=== PATIENT | female | born 1940 | race Caucasian/White ===

== ENCOUNTER 2016-08-16 08:35 | Outpatient (CLI) | payer OTHER ==
--- NOTE | 2016-08-16 10:06 | DIAGNOSTIC IMAGING REPORT ---
PROCEDURE: US ABDOMEN ULTRASOUND-COMPLETE INDICATION: WEIGHT LOSS,ABD PAIN, initial encounter TECHNIQUE: Diego scale and color Doppler sonographic images of the abdomen were obtained. COMPARISON: CT abdomen/pelvis 08/18/2015 FINDINGS: Enlarged liver (21.6 cm) with increased echogenicity. Normal spleen and pancreas. 4 mm non mobile gallbladder mural nodule posteriorly consistent with a polyp. Normal CBD measures 3.1 mm. Negative Saldana's sign. Atherosclerosis but no aortic aneurysm. IVC is patent. Normal hepatopetal flow in the portal vein. Right kidney measures 12.2 cm with a 2.3 cm upper pole cyst. Left kidney measures 12.2 cm with multiple cysts, largest inferiorly measuring 3.6 cm. IMPRESSION: 1. Hepatomegaly with steatosis 2. Bilateral renal cysts 3. Gallbladder polyp
== END 2016-08-16 23:00 ==
LOC: US SRH 08:35
DX: R63.4 Abnormal weight loss (principal); R10.9 Unspecified abdominal pain; R16.0 Hepatomegaly, not elsewhere classified; E88.89 Other specified metabolic disorders; N28.1 Cyst of kidney, acquired; K82.4 Cholesterolosis of gallbladder

== ENCOUNTER 2016-08-17 13:10 | Outpatient (CLI) | payer OTHER ==
--- NOTE | 2016-08-17 14:50 | DIAGNOSTIC IMAGING REPORT ---
PROCEDURE: CT ABD/PELVIS WITH CONTRAST CLINICAL INDICATION: ABD PAIN;NAUSEA;WT LOSS TECHNIQUE: 125 ml of Isovue 300 were injected intravenously and axial images were obtained of the entire abdomen and pelvis with sagittal and coronal reformations. COMPARISON: Abdominal ultrasound 08/16/2016, chest CT 05/10/[address] abdomen/pelvis 08/18/2015. FINDINGS: ABDOMEN: Status post right lower lobectomy with stable right infrahilar mass/adenopathy, right hemithorax volume loss and improved small right pleural effusion. Normal heart size. Enlarged liver (22 cm) with steatosis. Stable 4 mm hypoenhancing left hepatic lobe lesion, likely benign. The gallbladder, pancreas, spleen and adrenal glands are normal. Stable bilateral renal cysts. Severe atherosclerosis of the aorta. Moderate hiatal hernia. PELVIS: Appendix not visualized. Mild proximal sigmoid diverticulosis. Hysterectomy. Normal bladder. No inflammatory changes or free fluid. 1 cm fat-containing umbilical hernia. Moderate dextroconvex thoracolumbar spine and levoconvex lumbar spine scoliosis with severe degenerative changes.. IMPRESSION: 1. Status post right lower lobectomy with stable postoperative changes and improved small right pleural effusion 2. Hepatomegaly with steatosis 3. Bilateral renal cysts 4. Proximal sigmoid diverticulosis 5. Hysterectomy All CT scans at this facility use dose modulation, iterative reconstruction, and/or weight-based dosing when appropriate to reduce radiation dose to as low as reasonably achievable.
== END 2016-08-17 23:00 ==
LOC: CT SRH 13:10
DX: R10.84 Generalized abdominal pain (principal); R63.4 Abnormal weight loss; R16.0 Hepatomegaly, not elsewhere classified; E88.89 Other specified metabolic disorders; N28.1 Cyst of kidney, acquired; J90 Pleural effusion, not elsewhere classified; K57.30 Diverticulosis of large intestine without perforation or abscess without bleeding; Z90.710 Acquired absence of both cervix and uterus; Z85.118 Personal history of other malignant neoplasm of bronchus and lung

== ENCOUNTER 2016-09-28 01:48 | Emergency (ER) | payer OTHER ==
--- NOTE | 2016-09-28 02:23 | ED ORDER SUMMARY ---
..... Patient: PHONG CARTY OrderSheet [facility] VisitID: [id number] [address] [place] [address] 76y, F Registration Date/Time: 09/28/2016 ORDER SHEET Weight: 76.6 kg (stated) Allergies: Adhesive Tape GENERAL ORDERS: UA-Culture if indicated Urgent (02:01 09/28/2016 Patricia SAUCEDO) (Ack 2:05 Kayli) MEDICATION ORDERS: IV FLUIDS: ORDER SHEET NOTES: [Electronically signed by Marquita Montero R.N. (02:31 09/28/2016)] [Electronically signed by Andres Cross MD (02:34 09/28/2016)] [Electronically locked/signed by Marquita Montero R.N. (02:09/28/2016)]
--- NOTE | 2016-09-28 02:23 | ED CLINICAL REPORT ---
Clinical Report - Physicians/Mid Levels [facility] [address] [place] [address] 09/28/2016 1:52 Patient: PHONG CARTY Time Seen: 01:54. Arrived- By private vehicle. Historian- patient. HISTORY OF PRESENT ILLNESS Chief Complaint: DYSURIA. BLOOD IN URINE. This started last night and still present. It was abrupt in onset and has been constant. The symptoms are described as moderate. The patient has had moderate burning pain with urination. It is described as "painful" and has occurred during urination. The patient has had urinary frequency and hematuria. She has had urgency of urination. Similar symptoms previously: (many years ago). REVIEW OF SYSTEMS No chills, fever, sweats, calf pain or chest pain. No cough, difficulty breathing, pedal edema, palpitations or abdominal pain. No black stools, bloody stools, constipation, diarrhea or nausea. No vomiting or urinary problems. All systems otherwise negative, except as recorded above. PAST HISTORY Problems: Hypercholesterolemia. Diabetes Mellitus. Atrial Fibrillation. Cancer. Immunizations. Additional Surgeries: Appendectomy. Hysterectomy. Knee Surgery. Lung Surgery. Medications: Melatonin Oral. Vitamin B-12 Oral. Vitamin D3 Oral. Calcium 600 Oral. Mature vit. [place] 3 Oral. Glipizide Oral 5 mg, 2x a day. MetFORMIN HCl Oral (Tablet 500 mg) 1 tablet, 2x a day. Coumadin Oral 6.5mg, daily. Digoxin Oral 0.25 mg, daily. Lovastatin Oral 40, at bedtime. Potassium Chloride Oral 20 meq, at bedtime. Allergies: Adhesive Tape. Definite Mild (redness). SOCIAL HISTORY Occasional alcohol use. No drug use. FAMILY HISTORY Denies family medical history. ADDITIONAL NOTES The nursing notes have been reviewed. PHYSICAL EXAM Vital Signs: 09/28/2016 01:55 BP: 191/85. HR: 89. RR: 17. O2 saturation: 95%. Temp: 98 F. Bojorquez-Rasmussen pain scale: 4/10. Have been reviewed. Appearance: Alert. ENT: Pharynx normal. Neck: Neck supple. CVS: Heart sounds normal. Respiratory: No respiratory distress. Breath sounds normal. Abdomen: Soft. Mild tenderness in the suprapubic area. Bowel sounds normal. No organomegaly. No mass. Back: Normal external inspection. No CVA tenderness. Skin: Skin warm and dry. Normal skin color. No rash. Normal skin turgor. Extremities: No calf tenderness. No lower extremity edema. LABS, X-RAYS, AND EKG Laboratory Tests: UA-Culture if indicated: (PEDRO LUIS: 09/28/2016 02:00) ( MsgRcvd 09/28/2016 02:16) Final results Test Result Flag Units (Reference) URINE COLOR RED URINE APPEARANCE CLOUDY URINE GLUCOSE NEGATIVE (NEGATIVE) URINE BILIRUBIN 2+ (NEGATIVE) URINE BILIRUBIN ICTOTEST NEGATIVE (NEGATIVE) URINE KETONE TRACE (NEGATIVE) ACETEST NEGATIVE This is a corrected result 09/28/16 0216:URINE KETONE previously reported as: TRACE URINE SPECIFIC GRAVITY 1.020 (1.010-1.030) URINE PH 6.5 (5.0-8.0) URINE PROTEIN 3+ (NEGATIVE) URINE UROBILINOGEN 1.0 EU/dL (0.2-1.0) URINE NITRITE POSITIVE (NEGATIVE) URINE BLOOD 3+ (NEGATIVE) URINE LEUK ESTERASE POSITIVE (NEGATIVE) URINE RBC >100 rbc/hpf (0-1) URINE WBC 50-75 wbc/hpf (0-1) URINE EPITHELIAL CELLS 0-1 EPI/hpf (0-5) URINE BACTERIA MODERATE (2+ TO 3+) (NONE SEEN) URINE COMMENT CULTURE INDICATED URINE CULTURES ARE SET-UP BASED ON THE FOLLOWING CRITERIA:POSITIVE NITRITEPOSITIVE LEUKOCYTE ESTERASEGREATER THAN 10 WHITE BLOOD CELLSMODERATE (2+) OR GREATER BACTERIA . CLINICAL IMPRESSION Acute urinary tract infection with cystitis. INSTRUCTIONS Drink plenty of fluids. Warnings: Further evaluation is necessary. GENERAL WARNINGS: Return or contact your physician immediately if your condition worsens or changes unexpectedly, if not improving as expected, or if other problems arise. Your Current Medications: CONTINUE TAKING THE FOLLOWING MEDICATIONS: Calcium 600 Oral. Coumadin Oral : 6.5mg daily. Digoxin Oral : 0.25 mg daily. Glipizide Oral : 5 mg 2x a day. Lovastatin Oral : 40 at bedtime. Mature vit*. Melatonin Oral. MetFORMIN HCl Oral : Tablet 500 mg, 1 tablet 2x a day. [place] 3 Oral. Vitamin B-12 Oral. Vitamin D3 Oral. Prescription Medications: Pyridium 200 mg: take 1 orally every 8 hours as needed for urinary problems. Dispense six (6). No refills. Substitution is permissible. Macrobid 100 mg: Take 1 capsule orally every 12 hours for 7 days. No refills. Substitution is permissible. Understanding of the discharge instructions verbalized by patient. Follow-up with: Destiney Tavera PA-C, [facility], , [facility], [address] [place] [address] Follow up in five days. Call for an appointment. (Electronically signed by Andres Cross MD 09/28/2016 2:34)
--- NOTE | 2016-09-28 02:23 | ED NURSING NOTES ---
Clinical Report - Nurses [facility] [address] [place] [address] 09/28/2016 1:52 Patient: PHONG CARTY TRIAGE Triage time 01:55. Acuity: LEVEL 4. Chief Complaint: PAINFUL URINATION, URGENCY and FREQUENCY and BLOOD IN URINE. Alert. No acute distress. --01:59 Marquita Montero R.N. 01:55 09/28/16. BP: 191/85. HR: 89. RR: 17. O2 saturation: 95% on room air. Temp: 98 F (oral). Bojorquez-Rasmussen pain scale: 4/10. --01:59 Marquita Montero R.N. Weight: 76.6 kg stated. Height/Length: 64 inches Per Patient. BMI: 29. --01:59 Marquita Montero R.N. Medications Digoxin Oral 0.25 mg, daily. Lovastatin Oral 40, at bedtime. Potassium Chloride Oral 20 meq, at bedtime. --02:01 Marquita Montero R.N. Coumadin Oral 6.5mg, daily. --02:01 Marquita Montero R.N. MetFORMIN HCl Oral (Tablet 500 mg) 1 tablet, 2x a day. --02:02 Marquita Montero R.N. Glipizide Oral 5 mg, 2x a day. --02:02 Marquita Montero R.N. [place] 3 Oral. --02:02 Marquita Montero R.N. Mature vit. --02:02 Marquita Montero R.N. Calcium 600 Oral. --02:03 Marquita Montero R.N. Vitamin D3 Oral. --02:03 Marquita Montero R.N. Vitamin B-12 Oral. --02:03 Marquita Montero R.N. Melatonin Oral. --02:03 Marquita Montero R.N. Allergies Adhesive Tape. Definite Mild (redness) --01:58 Marquita Montero R.N. History Arrived by private vehicle. Primary physician (Alex). This started last night. Onset. (at about 1900). Treatment SHOE LINING FITTER: None. PAST MEDICAL HX: Immunizations: up-to-date. SOCIAL HX: Smoker- current status unknown. Occasional alcohol use. No drug use. NUTRITIONAL RISK ASSESSMENT: The nutritional risk assessment revealed no deficiencies. FUNCTIONAL ASSESSMENT: Functional assessment: no impairments noted. --:59 Marquita Montero R.N. PROBLEMS: Cancer. --:58 Marquita Montero R.N. Hypercholesterolemia. Diabetes Mellitus. Atrial Fibrillation. --02:04 Marquita Montero R.N. ADDITIONAL SURGERIES: Appendectomy. Hysterectomy. Knee Surgery. Lung Surgery. --:58 Marquita Montero R.N. Interventions ID band on patient. To treatment room. --:59 Marquita Montero R.N. PHYSICAL ASSESSMENT Ambulatory to room. GENERAL / NEURO / PSYCH: Alert. Oriented X 4. Appears in no acute distress. HEENT: Mucous membranes are pink. RESPIRATORY: Respirations not labored. CVS: Capillary refill less than 2 seconds. SKIN: Skin is warm and dry. --02:00 Marquita Montero R.N. NURSING PROGRESS NOTES Head of bed elevated. Two patient identifiers checked. Call light placed in reach. Side rails up x 1. Bed placed in lowest position. Brakes of bed on. --02:00 Marquita Montero R.N. Patient ready for evaluation- chart flagged. --02:00 Marquita Montero R.N. Patient ID band checked for patient name and birthdate: patient confirmed urine collected with return of red-colored urine; sample sent to lab. Specimen labeled in the presence of the patient. --02:00 Marquita Montero R.N. 02:17 09/28/16. BP: 150/80. HR: 86. RR: 16. O2 saturation: 96% on room air. Bojorquez-Rasmussen pain scale: 4/10. --02:17 Marquita Monteor R.N. DISPOSITION / DISCHARGE Condition at departure: stable. No learning barriers present. Discharge instructions provided and reviewed with the patient. Reviewed medication(s) side effects, precautions, dosing and course information. Prescription(s) given to the patient. Follow up contact number. Patient verbalized understanding. Written instructions provided in Haitian. The patient was discharged home. She left the Emergency Department ambulatory and via private vehicle. Patient driving. --02:30 Marquita Montero R.N. 02:17 09/28/16. BP: 150/80. HR: 86. RR: 16. O2 saturation: 96% on room air. Bojorquez-Rasmussen pain scale: 4/10. --02:30 Marquita Montero R.N. Locked/Released at 09/28/2016 2:31 by Marquita Montero R.N.
--- NOTE | 2016-09-28 02:23 | ED NURSING NOTES ---
Clinical Report - Nurses [facility] [address] [place] [place] [address] 09/28/2016 1:52 Patient: PHONG CARTY TRIAGE Triage time 01:55. Acuity: LEVEL 4. Chief Complaint: PAINFUL URINATION, URGENCY and FREQUENCY and BLOOD IN URINE. Alert. No acute distress. --01:59 Marquita Montero R.N. 01:55 09/28/16. BP: 191/85. HR: 89. RR: 17. O2 saturation: 95% on room air. Temp: 98 F (oral). Bojorquez-Rasmussen pain scale: 4/10. --01:59 Marquita Montero R.N. Weight: 76.6 kg stated. Height/Length: 64 inches Per Patient. BMI: 29. --01:59 Marquita Montero R.N. Medications Digoxin Oral 0.25 mg, daily. Lovastatin Oral 40, at bedtime. Potassium Chloride Oral 20 meq, at bedtime. --02:01 Marquita Montero R.N. Coumadin Oral 6.5mg, daily. --02:01 Marquita Montero R.N. MetFORMIN HCl Oral (Tablet 500 mg) 1 tablet, 2x a day. --02:02 Marquita Montero R.N. Glipizide Oral 5 mg, 2x a day. --02:02 Marquita Montero R.N. [place] 3 Oral. --02:02 Marquita Montero R.N. Mature vit. --02:02 Marquita Montero R.N. Calcium 600 Oral. --02:03 Marquita Montero R.N. Vitamin D3 Oral. --02:03 Marquita Montero R.N. Vitamin B-12 Oral. --02:03 Marquita Montero R.N. Melatonin Oral. --02:03 Marquita Montero R.N. Allergies Adhesive Tape. Definite Mild (redness) --01:58 Marquita Montero R.N. History Arrived by private vehicle. Primary physician (Alex). This started last night. Onset. (at about 1900). Treatment CONTRACTS DIRECTOR: None. PAST MEDICAL HX: Immunizations: up-to-date. SOCIAL HX: Smoker- current status unknown. Occasional alcohol use. No drug use. NUTRITIONAL RISK ASSESSMENT: The nutritional risk assessment revealed no deficiencies. FUNCTIONAL ASSESSMENT: Functional assessment: no impairments noted. --:59 Marquita Montero R.N. PROBLEMS: Cancer. --:58 Marquita Montero R.N. Hypercholesterolemia. Diabetes Mellitus. Atrial Fibrillation. --02:04 Marquita Montero R.N. ADDITIONAL SURGERIES: Appendectomy. Hysterectomy. Knee Surgery. Lung Surgery. --:58 Marquita Montero R.N. Interventions ID band on patient. To treatment room. --:59 Marquita Montero R.N. PHYSICAL ASSESSMENT Ambulatory to room. GENERAL / NEURO / PSYCH: Alert. Oriented X 4. Appears in no acute distress. HEENT: Mucous membranes are pink. RESPIRATORY: Respirations not labored. CVS: Capillary refill less than 2 seconds. SKIN: Skin is warm and dry. --02:00 Marquita Montero R.N. NURSING PROGRESS NOTES Head of bed elevated. Two patient identifiers checked. Call light placed in reach. Side rails up x 1. Bed placed in lowest position. Brakes of bed on. --02:00 Marquita Montero R.N. Patient ready for evaluation- chart flagged. --02:00 Marquita Montero R.N. Patient ID band checked for patient name and birthdate: patient confirmed urine collected with return of red-colored urine; sample sent to lab. Specimen labeled in the presence of the patient. --02:00 Marquita Montero R.N. 02:17 09/28/16. BP: 150/80. HR: 86. RR: 16. O2 saturation: 96% on room air. Bojorquez-Rasmussen pain scale: 4/10. --02:17 Marquita Montero R.N. DISPOSITION / DISCHARGE Condition at departure: stable. No learning barriers present. Discharge instructions provided and reviewed with the patient. Reviewed medication(s) side effects, precautions, dosing and course information. Prescription(s) given to the patient. Follow up contact number. Patient verbalized understanding. Written instructions provided in [place]. The patient was discharged home. She left the Emergency Department ambulatory and via private vehicle. Patient driving. --02:30 Marquita Montero R.N. 02:17 09/28/16. BP: 150/80. HR: 86. RR: 16. O2 saturation: 96% on room air. Bojorquez-Rasmussen pain scale: 4/10. --02:30 Marquita Montero R.N. Locked/Released at 09/28/2016 2:31 by Marquita Montero R.N.
--- NOTE | 2016-09-28 02:23 | ED ORDER SUMMARY ---
..... Patient: PHONG CARTY OrderSheet [facility] VisitID: [id number] [address] [place] [address] 76y, F Registration Date/Time: 09/28/2016 ORDER SHEET Weight: 76.6 kg (stated) Allergies: Adhesive Tape GENERAL ORDERS: UA-Culture if indicated Urgent (02:01 09/28/2016 Patricia SAUCEDO) (Ack 2:05 Kayli) MEDICATION ORDERS: IV FLUIDS: ORDER SHEET NOTES: [Electronically signed by Marquita Montero R.N. (02:31 09/28/2016)] [Electronically signed by Andres Cross MD (02:34 09/28/2016)] [Electronically locked/signed by Marquita Montero R.N. (02:09/28/2016)]
--- NOTE | 2016-09-28 02:23 | ED CLINICAL REPORT ---
Clinical Report - Physicians/Mid Levels [facility] [address] [place] [address] 09/28/2016 1:52 Patient: PHONG CARTY Time Seen: 01:54. Arrived- By private vehicle. Historian- patient. HISTORY OF PRESENT ILLNESS Chief Complaint: DYSURIA. BLOOD IN URINE. This started last night and still present. It was abrupt in onset and has been constant. The symptoms are described as moderate. The patient has had moderate burning pain with urination. It is described as "painful" and has occurred during urination. The patient has had urinary frequency and hematuria. She has had urgency of urination. Similar symptoms previously: (many years ago). REVIEW OF SYSTEMS No chills, fever, sweats, calf pain or chest pain. No cough, difficulty breathing, pedal edema, palpitations or abdominal pain. No black stools, bloody stools, constipation, diarrhea or nausea. No vomiting or urinary problems. All systems otherwise negative, except as recorded above. PAST HISTORY Problems: Hypercholesterolemia. Diabetes Mellitus. Atrial Fibrillation. Cancer. Immunizations. Additional Surgeries: Appendectomy. Hysterectomy. Knee Surgery. Lung Surgery. Medications: Melatonin Oral. Vitamin B-12 Oral. Vitamin D3 Oral. Calcium 600 Oral. Mature vit. [place] 3 Oral. Glipizide Oral 5 mg, 2x a day. MetFORMIN HCl Oral (Tablet 500 mg) 1 tablet, 2x a day. Coumadin Oral 6.5mg, daily. Digoxin Oral 0.25 mg, daily. Lovastatin Oral 40, at bedtime. Potassium Chloride Oral 20 meq, at bedtime. Allergies: Adhesive Tape. Definite Mild (redness). SOCIAL HISTORY Occasional alcohol use. No drug use. FAMILY HISTORY Denies family medical history. ADDITIONAL NOTES The nursing notes have been reviewed. PHYSICAL EXAM Vital Signs: 09/28/2016 01:55 BP: 191/85. HR: 89. RR: 17. O2 saturation: 95%. Temp: 98 F. Bojorquez-Rasmussen pain scale: 4/10. Have been reviewed. Appearance: Alert. ENT: Pharynx normal. Neck: Neck supple. CVS: Heart sounds normal. Respiratory: No respiratory distress. Breath sounds normal. Abdomen: Soft. Mild tenderness in the suprapubic area. Bowel sounds normal. No organomegaly. No mass. Back: Normal external inspection. No CVA tenderness. Skin: Skin warm and dry. Normal skin color. No rash. Normal skin turgor. Extremities: No calf tenderness. No lower extremity edema. LABS, X-RAYS, AND EKG Laboratory Tests: UA-Culture if indicated: (PEDRO LUIS: 09/28/2016 02:00) ( MsgRcvd 09/28/2016 02:16) Final results Test Result Flag Units (Reference) URINE COLOR RED URINE APPEARANCE CLOUDY URINE GLUCOSE NEGATIVE (NEGATIVE) URINE BILIRUBIN 2+ (NEGATIVE) URINE BILIRUBIN ICTOTEST NEGATIVE (NEGATIVE) URINE KETONE TRACE (NEGATIVE) ACETEST NEGATIVE This is a corrected result 09/28/16 0216:URINE KETONE previously reported as: TRACE URINE SPECIFIC GRAVITY 1.020 (1.010-1.030) URINE PH 6.5 (5.0-8.0) URINE PROTEIN 3+ (NEGATIVE) URINE UROBILINOGEN 1.0 EU/dL (0.2-1.0) URINE NITRITE POSITIVE (NEGATIVE) URINE BLOOD 3+ (NEGATIVE) URINE LEUK ESTERASE POSITIVE (NEGATIVE) URINE RBC >100 rbc/hpf (0-1) URINE WBC 50-75 wbc/hpf (0-1) URINE EPITHELIAL CELLS 0-1 EPI/hpf (0-5) URINE BACTERIA MODERATE (2+ TO 3+) (NONE SEEN) URINE COMMENT CULTURE INDICATED URINE CULTURES ARE SET-UP BASED ON THE FOLLOWING CRITERIA:POSITIVE NITRITEPOSITIVE LEUKOCYTE ESTERASEGREATER THAN 10 WHITE BLOOD CELLSMODERATE (2+) OR GREATER BACTERIA . CLINICAL IMPRESSION Acute urinary tract infection with cystitis. INSTRUCTIONS Drink plenty of fluids. Warnings: Further evaluation is necessary. GENERAL WARNINGS: Return or contact your physician immediately if your condition worsens or changes unexpectedly, if not improving as expected, or if other problems arise. Your Current Medications: CONTINUE TAKING THE FOLLOWING MEDICATIONS: Calcium 600 Oral. Coumadin Oral : 6.5mg daily. Digoxin Oral : 0.25 mg daily. Glipizide Oral : 5 mg 2x a day. Lovastatin Oral : 40 at bedtime. Mature vit*. Melatonin Oral. MetFORMIN HCl Oral : Tablet 500 mg, 1 tablet 2x a day. [place] 3 Oral. Vitamin B-12 Oral. Vitamin D3 Oral. Prescription Medications: Pyridium 200 mg: take 1 orally every 8 hours as needed for urinary problems. Dispense six (6). No refills. Substitution is permissible. Macrobid 100 mg: Take 1 capsule orally every 12 hours for 7 days. No refills. Substitution is permissible. Understanding of the discharge instructions verbalized by patient. Follow-up with: Destiney Tavera PA-C, [facility], , [facility], [address] [place] [address] Follow up in five days. Call for an appointment. (Electronically signed by Andres Cross MD 09/28/2016 2:34)
--- NOTE | 2016-09-28 02:35 | ED MED RECONCILIATION SUMMARY ---
Patient: PHONG CARTY Medication Reconciliation Report [facility] VisitID: [id number] [address] [place] [address] 76y, F Registration Date/Time: 09/28/2016 Weight: 76.6 kg Height/Length: 64 in. BMI: 29.0 ALLERGIES: Adhesive Tape The patient's Home Medications are listed below: CONTINUE TAKING THE FOLLOWING MEDICATIONS: Calcium 600 Oral Coumadin Oral 6.5mg, daily Digoxin Oral 0.25 mg, daily Glipizide Oral 5 mg, 2x a day Lovastatin Oral 40, at bedtime Mature vit Melatonin Oral MetFORMIN HCl Oral (500 mg) 1 tablet, 2x a day [place] 3 Oral Vitamin B-12 Oral Vitamin D3 Oral THE FOLLOWING MEDICATIONS NEED TO BE RECONCILED: Potassium Chloride Oral 20 meq, at bedtime The source(s) of the original Home Medication information: Not obtained. The following Medications were given to the patient in the Emergency Department: None. The following Medications were prescribed to the patient: Pyridium 200 mg: take 1 orally every 8 hours as needed for urinary problems. Dispense six (6). No refills. Substitution is permissible. -- Andres Cross MD Macrobid 100 mg: Take 1 capsule orally every 12 hours for 7 days. No refills. Substitution is permissible. -- Andres Cross MD
--- NOTE | 2016-09-28 02:35 | ED DISCHARGE INSTRUCTIONS ---
Patient: PHONG CARTY General Instructions [facility] VisitID: [id number] [address] [place] [id number] 76y, F Registration Date/Time: 09/28/2016 Acute urinary tract infection with cystitis. INSTRUCTIONS Drink plenty of fluids. Warnings: Further evaluation is necessary. GENERAL WARNINGS: Return or contact your physician immediately if your condition worsens or changes unexpectedly, if not improving as expected, or if other problems arise. Your Current Medications: CONTINUE TAKING THE FOLLOWING MEDICATIONS: Calcium 600 Oral. Coumadin Oral : 6.5mg daily. Digoxin Oral : 0.25 mg daily. Glipizide Oral : 5 mg 2x a day. Lovastatin Oral : 40 at bedtime. Mature vit*. Melatonin Oral. MetFORMIN HCl Oral : Tablet 500 mg, 1 tablet 2x a day. [place] 3 Oral. Vitamin B-12 Oral. Vitamin D3 Oral. Prescription Medications: Pyridium 200 mg: take 1 orally every 8 hours as needed for urinary problems. Dispense six (6). No refills. Substitution is permissible. Macrobid 100 mg: Take 1 capsule orally every 12 hours for 7 days. No refills. Substitution is permissible. Understanding of the discharge instructions verbalized by patient. Follow-up with: Destiney Tavera PA-C, [facility], , [facility], [address] [place] [address] Follow up in five days. Call for an appointment. ADDITIONAL INFORMATION Bladder Infection,Female (Adult) A bladder infection ("cystitis" or "UTI") usually causes a constant urge to urinate and a burning when passing urine. Urine may be cloudy, smelly or dark. There may be pain in the lower abdomen. A bladder infection occurs when bacteria from the vaginal area enter the bladder opening (urethra). This can occur from sexual intercourse, wearing tight clothing, dehydration and other factors. Home Care: Drink lots of fluids (at least 6-8 glasses a day, unless you must restrict fluids for other medical reasons). This will force the medicine into your urinary system and flush the bacteria out of your body. Avoid sexual intercourse until your symptoms are gone. Avoid caffeine, alcohol and spicy foods. These can irritate the bladder. A bladder infection is treated with antibiotics. You may also be given Pyridium (generic = phenazopyridine) to reduce the burning sensation. This medicine will cause your urine to become a bright orange color. The orange urine may stain clothing. You may wear a pad or panty-liner to protect clothing. Preventing Future Infections: Always wipe from front to back after a bowel movement. Keep the genital area clean and dry. Drink plenty of fluids each day to avoid dehydration. Both sexual partners should wash before intercourse. Urinate right after intercourse to flush out the bladder. Wear cotton underwear and cotton-lined panty hose; avoid tight-fitting pants. If you are on control pills and are having frequent bladder infections, discuss with your doctor. Follow Up: Return to this facility or see your doctor if ALL symptoms are not gone after three days of treatment. Get Prompt Medical Attention if any of the following occur: Fever of 100.4F (38C) or higher, or as directed by your healthcare provider No improvement by the third day of treatment Increasing back or abdominal pain Repeated vomiting; unable to keep medicine down Weakness, dizziness or fainting Vaginal discharge Pain, redness or swelling in the labia (outer vaginal area) Phenazopyridine Hydrochloride Oral tablet What is this medicine? PHENAZOPYRIDINE (fen az oh PEER i racquel) is a pain reliever. It is used to stop the pain, burning, or discomfort caused by infection or irritation of the urinary tract. This medicine is not an antibiotic. It will not cure a urinary tract infection. How should I use this medicine? Take this medicine by mouth with a glass of water. Follow the directions on the prescription label. Take after meals. Take your doses at regular intervals. Do not take your medicine more often than directed. Do not skip doses or stop your medicine early even if you feel better. Do not stop taking except on your doctor's advice. Talk to your manager training regarding the use of this medicine in children. Special care may be needed. What side effects may I notice from receiving this medicine? Side effects that you should report to your doctor or health infant childcare provider as soon as possible: allergic reactions like skin rash, itching or hives, swelling of the face, lips, or tongue blue or purple color of the skin difficulty breathing fever less urine unusual bleeding, bruising unusual tired, weak vomiting yellowing of the eyes or skin Side effects that usually do not require medical attention (report to your doctor or health infant childcare provider if they continue or are bothersome): dark urine headache stomach upset What may interact with this medicine? Interactions are not expected. What if I miss a dose? If you miss a dose, take it as soon as you can. If it is almost time for your next dose, take only that dose. Do not take double or extra doses. Where should I keep my medicine? Keep out of the reach of children. Store at room temperature between 15 and 30 degrees C (59 and 86 degrees F). Protect from light and moisture. Throw away any unused medicine after the expiration date. What should I tell my health care provider before I take this medicine? They need to know if you have any of these conditions: mrmxrfj-5-ajbovixiz dehydrogenase (G6PD) deficiency kidney disease an unusual or allergic reaction to phenazopyridine, other medicines, foods, dyes, or preservatives or trying to get breast-feeding What should I watch for while using this medicine? Tell your doctor or health infant childcare provider if your symptoms do not improve or if they get worse. This medicine colors body fluids red. This effect is harmless and will go away after you are done taking the medicine. It will change urine to an dark orange or red color. The red color may stain clothing. Soft contact lenses may become permanently stained. It is best not to wear soft contact lenses while taking this medicine. If you are diabetic you may get a false positive result for sugar in your urine. Talk to your health care provider. Nitrofurantoin, Nitrofurantoin, Macrocrystalline Oral capsule What is this medicine? NITROFURANTOIN (suzy johnson) is an antibiotic. It is used to treat urinary tract infections. How should I use this medicine? Take this medicine by mouth with a glass of water. Follow the directions on the prescription label. Take this medicine with food or milk. Take your doses at regular intervals. Do not take your medicine more often than directed. Do not stop taking except on your doctor's advice. Talk to your manager training regarding the use of this medicine in children. While this drug may be prescribed for selected conditions, precautions do apply. What side effects may I notice from receiving this medicine? Side effects that you should report to your doctor or health infant childcare provider as soon as possible: allergic reactions like skin rash or hives, swelling of the face, lips, or tongue chest pain cough difficulty breathing dizziness, drowsiness fever or infection joint aches or pains pale or blue-tinted skin redness, blistering, peeling or loosening of the skin, including inside the mouth tingling, burning, pain, or numbness in hands or feet unusual bleeding or bruising unusually weak or tired yellowing of eyes or skin Side effects that usually do not require medical attention (report to your doctor or health infant childcare provider if they continue or are bothersome): dark urine diarrhea headache loss of appetite nausea or vomiting temporary hair loss What may interact with this medicine? antacids containing magnesium trisilicate probenecid quinolone antibiotics like ciprofloxacin, lomefloxacin, norfloxacin and ofloxacin sulfinpyrazone What if I miss a dose? If you miss a dose, take it as soon as you can. If it is almost time for your next dose, take only that dose. Do not take double or extra doses. Where should I keep my medicine? Keep out of the reach of children. Store at room temperature between 15 and 30 degrees C (59 and 86 degrees F). Protect from light. Throw away any unused medicine after the expiration date. What should I tell my health care provider before I take this medicine? They need to know if you have any of these conditions: anemia diabetes aojktvh-5-edppwvyex dehydrogenase deficiency kidney disease liver disease lung disease other chronic illness an unusual or allergic reaction to nitrofurantoin, other antibiotics, other medicines, foods, dyes or preservatives or trying to get breast-feeding What should I watch for while using this medicine? Tell your doctor or health infant childcare provider if your symptoms do not improve or if you get new symptoms. Drink several glasses of water a day. If you are taking this medicine for a long time, visit your doctor for regular checks on your progress. If you are diabetic, you may get a false positive result for sugar in your urine with certain brands of urine tests. Check with your doctor. You have been given the following additional information: Bladder Infection, Female (Adult) Phenazopyridine Hydrochloride Oral tablet Nitrofurantoin, Nitrofurantoin, Macrocrystalline Oral capsule (Electronically signed by Andres Cross MD 09/28/2016 2:34)
--- NOTE | 2016-09-28 02:35 | ED MAR SUMMARY ---
..... Medication Administration Record [facility] [address] [place], [place] [id number] Patient: PHONG CARTY Visit ID: [id number] 76y, F Weight: 76.6 kg Height/Length: 64 in BMI: 29 ALLERGIES: Adhesive Tape
--- NOTE | 2016-09-28 02:35 | ED MED RECONCILIATION SUMMARY ---
Patient: PHONG CARTY Medication Reconciliation Report [facility] VisitID: [id number] [address] [place] [address] 76y, F Registration Date/Time: 09/28/2016 Weight: 76.6 kg Height/Length: 64 in. BMI: 29.0 ALLERGIES: Adhesive Tape The patient's Home Medications are listed below: CONTINUE TAKING THE FOLLOWING MEDICATIONS: Calcium 600 Oral Coumadin Oral 6.5mg, daily Digoxin Oral 0.25 mg, daily Glipizide Oral 5 mg, 2x a day Lovastatin Oral 40, at bedtime Mature vit Melatonin Oral MetFORMIN HCl Oral (500 mg) 1 tablet, 2x a day [place] 3 Oral Vitamin B-12 Oral Vitamin D3 Oral THE FOLLOWING MEDICATIONS NEED TO BE RECONCILED: Potassium Chloride Oral 20 meq, at bedtime The source(s) of the original Home Medication information: Not obtained. The following Medications were given to the patient in the Emergency Department: None. The following Medications were prescribed to the patient: Pyridium 200 mg: take 1 orally every 8 hours as needed for urinary problems. Dispense six (6). No refills. Substitution is permissible. -- Andres Cross MD Macrobid 100 mg: Take 1 capsule orally every 12 hours for 7 days. No refills. Substitution is permissible. -- Andres Cross MD
--- NOTE | 2016-09-28 02:35 | ED MAR SUMMARY ---
..... Medication Administration Record [facility] [address], [place] [id number] Patient: PHONG CARTY Visit ID: [id number] 76y, F Weight: 76.6 kg Height/Length: 64 in BMI: 29 ALLERGIES: Adhesive Tape
--- NOTE | 2016-09-28 02:35 | ED DISCHARGE INSTRUCTIONS ---
Patient: PHONG CARTY General Instructions [facility] VisitID: [id number] [address] [id number] 76y, F Registration Date/Time: 09/28/2016 Acute urinary tract infection with cystitis. INSTRUCTIONS Drink plenty of fluids. Warnings: Further evaluation is necessary. GENERAL WARNINGS: Return or contact your physician immediately if your condition worsens or changes unexpectedly, if not improving as expected, or if other problems arise. Your Current Medications: CONTINUE TAKING THE FOLLOWING MEDICATIONS: Calcium 600 Oral. Coumadin Oral : 6.5mg daily. Digoxin Oral : 0.25 mg daily. Glipizide Oral : 5 mg 2x a day. Lovastatin Oral : 40 at bedtime. Mature vit*. Melatonin Oral. MetFORMIN HCl Oral : Tablet 500 mg, 1 tablet 2x a day. [place] 3 Oral. Vitamin B-12 Oral. Vitamin D3 Oral. Prescription Medications: Pyridium 200 mg: take 1 orally every 8 hours as needed for urinary problems. Dispense six (6). No refills. Substitution is permissible. Macrobid 100 mg: Take 1 capsule orally every 12 hours for 7 days. No refills. Substitution is permissible. Understanding of the discharge instructions verbalized by patient. Follow-up with: Destinye Tavera PA-C, [facility], , [facility], [address] [place] [address] Follow up in five days. Call for an appointment. ADDITIONAL INFORMATION Bladder Infection,Female (Adult) A bladder infection ("cystitis" or "UTI") usually causes a constant urge to urinate and a burning when passing urine. Urine may be cloudy, smelly or dark. There may be pain in the lower abdomen. A bladder infection occurs when bacteria from the vaginal area enter the bladder opening (urethra). This can occur from sexual intercourse, wearing tight clothing, dehydration and other factors. Home Care: Drink lots of fluids (at least 6-8 glasses a day, unless you must restrict fluids for other medical reasons). This will force the medicine into your urinary system and flush the bacteria out of your body. Avoid sexual intercourse until your symptoms are gone. Avoid caffeine, alcohol and spicy foods. These can irritate the bladder. A bladder infection is treated with antibiotics. You may also be given Pyridium (generic = phenazopyridine) to reduce the burning sensation. This medicine will cause your urine to become a bright orange color. The orange urine may stain clothing. You may wear a pad or panty-liner to protect clothing. Preventing Future Infections: Always wipe from front to back after a bowel movement. Keep the genital area clean and dry. Drink plenty of fluids each day to avoid dehydration. Both sexual partners should wash before intercourse. Urinate right after intercourse to flush out the bladder. Wear cotton underwear and cotton-lined panty hose; avoid tight-fitting pants. If you are on control pills and are having frequent bladder infections, discuss with your doctor. Follow Up: Return to this facility or see your doctor if ALL symptoms are not gone after three days of treatment. Get Prompt Medical Attention if any of the following occur: Fever of 100.4F (38C) or higher, or as directed by your healthcare provider No improvement by the third day of treatment Increasing back or abdominal pain Repeated vomiting; unable to keep medicine down Weakness, dizziness or fainting Vaginal discharge Pain, redness or swelling in the labia (outer vaginal area) Phenazopyridine Hydrochloride Oral tablet What is this medicine? PHENAZOPYRIDINE (fen az oh PEER i racquel) is a pain reliever. It is used to stop the pain, burning, or discomfort caused by infection or irritation of the urinary tract. This medicine is not an antibiotic. It will not cure a urinary tract infection. How should I use this medicine? Take this medicine by mouth with a glass of water. Follow the directions on the prescription label. Take after meals. Take your doses at regular intervals. Do not take your medicine more often than directed. Do not skip doses or stop your medicine early even if you feel better. Do not stop taking except on your doctor's advice. Talk to your english language learner teacher regarding the use of this medicine in children. Special care may be needed. What side effects may I notice from receiving this medicine? Side effects that you should report to your doctor or health childcare provider as soon as possible: allergic reactions like skin rash, itching or hives, swelling of the face, lips, or tongue blue or purple color of the skin difficulty breathing fever less urine unusual bleeding, bruising unusual tired, weak vomiting yellowing of the eyes or skin Side effects that usually do not require medical attention (report to your doctor or health childcare provider if they continue or are bothersome): dark urine headache stomach upset What may interact with this medicine? Interactions are not expected. What if I miss a dose? If you miss a dose, take it as soon as you can. If it is almost time for your next dose, take only that dose. Do not take double or extra doses. Where should I keep my medicine? Keep out of the reach of children. Store at room temperature between 15 and 30 degrees C (59 and 86 degrees F). Protect from light and moisture. Throw away any unused medicine after the expiration date. What should I tell my health care provider before I take this medicine? They need to know if you have any of these conditions: qopcnzw-7-moseruvye dehydrogenase (G6PD) deficiency kidney disease an unusual or allergic reaction to phenazopyridine, other medicines, foods, dyes, or preservatives or trying to get breast-feeding What should I watch for while using this medicine? Tell your doctor or health childcare provider if your symptoms do not improve or if they get worse. This medicine colors body fluids red. This effect is harmless and will go away after you are done taking the medicine. It will change urine to an dark orange or red color. The red color may stain clothing. Soft contact lenses may become permanently stained. It is best not to wear soft contact lenses while taking this medicine. If you are diabetic you may get a false positive result for sugar in your urine. Talk to your health care provider. Nitrofurantoin, Nitrofurantoin, Macrocrystalline Oral capsule What is this medicine? NITROFURANTOIN (suzy johnson) is an antibiotic. It is used to treat urinary tract infections. How should I use this medicine? Take this medicine by mouth with a glass of water. Follow the directions on the prescription label. Take this medicine with food or milk. Take your doses at regular intervals. Do not take your medicine more often than directed. Do not stop taking except on your doctor's advice. Talk to your english language learner teacher regarding the use of this medicine in children. While this drug may be prescribed for selected conditions, precautions do apply. What side effects may I notice from receiving this medicine? Side effects that you should report to your doctor or health childcare provider as soon as possible: allergic reactions like skin rash or hives, swelling of the face, lips, or tongue chest pain cough difficulty breathing dizziness, drowsiness fever or infection joint aches or pains pale or blue-tinted skin redness, blistering, peeling or loosening of the skin, including inside the mouth tingling, burning, pain, or numbness in hands or feet unusual bleeding or bruising unusually weak or tired yellowing of eyes or skin Side effects that usually do not require medical attention (report to your doctor or health childcare provider if they continue or are bothersome): dark urine diarrhea headache loss of appetite nausea or vomiting temporary hair loss What may interact with this medicine? antacids containing magnesium trisilicate probenecid quinolone antibiotics like ciprofloxacin, lomefloxacin, norfloxacin and ofloxacin sulfinpyrazone What if I miss a dose? If you miss a dose, take it as soon as you can. If it is almost time for your next dose, take only that dose. Do not take double or extra doses. Where should I keep my medicine? Keep out of the reach of children. Store at room temperature between 15 and 30 degrees C (59 and 86 degrees F). Protect from light. Throw away any unused medicine after the expiration date. What should I tell my health care provider before I take this medicine? They need to know if you have any of these conditions: anemia diabetes xslqkxr-6-thzywpefl dehydrogenase deficiency kidney disease liver disease lung disease other chronic illness an unusual or allergic reaction to nitrofurantoin, other antibiotics, other medicines, foods, dyes or preservatives or trying to get breast-feeding What should I watch for while using this medicine? Tell your doctor or health childcare provider if your symptoms do not improve or if you get new symptoms. Drink several glasses of water a day. If you are taking this medicine for a long time, visit your doctor for regular checks on your progress. If you are diabetic, you may get a false positive result for sugar in your urine with certain brands of urine tests. Check with your doctor. You have been given the following additional information: Bladder Infection, Female (Adult) Phenazopyridine Hydrochloride Oral tablet Nitrofurantoin, Nitrofurantoin, Macrocrystalline Oral capsule (Electronically signed by Andres Cross MD 09/28/2016 2:34)
== END 2016-09-28 02:30 | disposition home or self-care (01) ==
LOC: ED SRH 01:48
DX: N39.0 Urinary tract infection, site not specified (principal); E11.9 Type 2 diabetes mellitus without complications; Z79.84 Long term (current) use of oral hypoglycemic drugs
CPT/HCPCS: 90004; 90148; 90469